=== PATIENT | male | born 1995 | race Caucasian/White ===

== ENCOUNTER 2017-06-15 17:06 | Emergency (ER) | payer OTHER ==
[~2017-06-15] VITALS: Ht 200.7 cm; Wt 68.0 kg
[2017-06-15 19:54] VITALS: BP 130/82
[2017-06-15] MEDS ORDERED: TETANUS-DIPTH-ACEL PERTUSSIS 0.5ML SYRG IM ONE (20:00)
[2017-06-15] MEDS ORDERED: LIDOCAINE 1% HCL (LOCAL ANESTH.) INJ 20ML MDV IJ ONE (20:00)
[2017-06-15] MEDS ORDERED: ERYTHROMY OPTH OINT 5mg/gm 1gm ONE (21:16)
== END 2017-06-15 20:45 | disposition home or self-care (01) ==
LOC: ER 17:13
DX: S61.012A Laceration without foreign body of left thumb without damage to nail, initial encounter (principal); W26.0XXA Contact with knife, initial encounter; Y93.89 Activity, other specified; Y92.89 Other specified places as the place of occurrence of the external cause; Y99.8 Other external cause status
CPT/HCPCS: 12001; 90471; 90715; 99283; J2001